=== PATIENT | female | born 1990 | race Caucasian/White ===

== ENCOUNTER 2017-06-19 19:09 | Emergency (ER) | payer BC, OTHER ==
[2017-06-19 20:00] LABS: #Basophils 0.1 thou/uL (0.0-0.2); #Eosinphils 0.1 thou/uL (0.0-0.7); #Monocytes 0.4 thou/uL (0.11-0.59); #Neutrophils 3.9 thou/uL (1.40-6.50); %Basophils 0.8 % (0.0-1.0); %Eosinophils 1.5 % (0.0-10.0); %Lymphocytes 40.8 % (21.0-51.0); Red Blood Cell (RBC) Count 4.28 mill/uL (4.20-5.40); White Blood Cell (WBC) Count 7.4 thou/uL (4.8-10.8)
[2017-06-19 20:13] LABS: ALT (SGPT) 16 U/L (8-55); AST (SGOT) 18 U/L (5-34); Alkaline Phosphatase 67 U/L (40-150); Anion Gap 11 mmol/L (10-20); BUN (Urea Nitrogen) 13 mg/dL (7.0-18.7); Bilirubin, Total 0.5 mg/dL (0.2-1.2); Calc. Creatinine Clearance 0 mL/min (70-130); Calcium 9.3 mg/dL (7.8-10.44); Carbon Dioxide 25 mmol/L (22-29); Chloride 105 mmol/L (98-107); Estimated GFR-MDRD 86; Globulin 3.6 g/dL (2.4-3.5); Protein, Total 7.6 g/dL (6.0-8.3)
[2017-06-19 20:37] LABS: CK (CPK) 46 U/L (29-168); Lipase 11 U/L (8-78)
[2017-06-19] MEDS ORDERED: Ondansetron HCl/PF 4 MG/2 ML Vial ONE (20:55)
[2017-06-19] MEDS ORDERED: Ketorolac Tromethamine 30 MG/ML VIAL ONE (20:55)
[2017-06-19 21:34] LABS: Bilirubin Negative (Negative); Blood, Urine Negative (Negative); Glucose, Urine (Dipstick) Negative (Negative); Ketone, Urine Negative (Negative); Nitrite Negative (Negative); Protein, Urine (Dipstick) Negative (Neg-Trace); Urobilinogen 0.2 mg/dL (0.2-1.0)
--- NOTE | 2017-06-20 00:15 | CT ---
CT ABDOMEN WITH IV CONTRAST CT PELVIS WITH IV CONTRAST 06/19/2017 HISTORY: Sharp right lower quadrant abdominal pain. Burning sensation for 3 days that is worse today and rad iates to the right upper quadrant COMPARISON: 07/04/2015. FINDINGS: Again noted are post-cholecystectomy changes. The lung bases, liver, spleen, pancreas, bilateral adrenal glands, kidneys, abdominal aorta, urinary bladder, uterus, and adnexal structures have a normal CT appearance. Right ovary is not visualized ; the patient provides prior history of right oophorectomy. The appendix is not visualized, but there are no secondary signs to suggest appendicitis. There has been no interval change when compared to the prior exam. IMPRESSION: 1. No acute findings are seen in the abdomen or pelvis. 2. Post-cholecystectomy changes. POS: [facility]
== END 2017-06-19 21:47 | disposition home or self-care (01) ==
LOC: ERS 19:09
DX: R10.31 Right lower quadrant pain (principal); E03.9 Hypothyroidism, unspecified; G50.0 Trigeminal neuralgia
CPT/HCPCS: 36415; 74177; 80053; 81003; 81025; 82550; 83690; 84703; 85025; 96361; 96374; 96375; J1885; J2405

== ENCOUNTER 2017-06-27 09:10 | Emergency (ER) | payer BC ==
[2017-06-27] MEDS ORDERED: Acetaminophen 325 MG TAB ONE (10:02)
[2017-06-27] MEDS ORDERED: Ibuprofen 600 MG TAB ONE (10:02)
== END 2017-06-27 10:05 | disposition home or self-care (01) ==
LOC: SCSER 09:10
DX: J01.90 Acute sinusitis, unspecified (principal); E03.9 Hypothyroidism, unspecified; Z79.899 Other long term (current) drug therapy
CPT/HCPCS: 99283

== ENCOUNTER 2017-12-07 20:59 | Emergency (ER) | payer BC ==
[~2017-12-07 20:59] MED LIST: ISOVUE-370 76%-LOCM 1 ML ONE
[2017-12-07 22:05] LABS: #Eosinphils 0.2 thou/uL (0.0-0.7); #Lymphocytes 3.6 thou/uL (1.20-3.40); #Monocytes 0.6 thou/uL (0.11-0.59); #Neutrophils 5.4 thou/uL (1.40-6.50); %Basophils 0.4 % (0.0-1.0); %Eosinophils 1.9 % (0.0-10.0); %Lymphocytes 37.1 % (21.0-51.0); %Monocytes 5.9 % (0.0-10.0); %Neutrophils 54.7 % (42.0-75.0); Mean Corpuscular HGB CONC 35.6 g/dL (32.0-36.0); Mean Corpuscular Hemoglobin 30.8 pg (27.0-31.0); Mean Corpuscular Volume 86.4 fl (81.0-99.0); Mean Platelet Volume 6.7 fL (7.4-10.4); Platelet Count 225 thou/uL (130-400); RBC Distribution Width 12.6 % (11.5-14.5); Red Blood Cell (RBC) Count 3.91 mill/uL (4.20-5.40); White Blood Cell (WBC) Count 9.8 thou/uL (4.8-10.8)
[2017-12-07 22:25] LABS: ALT (SGPT) 19 U/L (8-55); AST (SGOT) 15 U/L (5-34); Albumin 3.9 g/dL (3.5-5.0); Alkaline Phosphatase 68 U/L (40-150); Anion Gap 12 mmol/L (10-20); BUN (Urea Nitrogen) 16 mg/dL (7.0-18.7); Bilirubin, Total 0.2 mg/dL (0.2-1.2); Calc. Creatinine Clearance 0 mL/min (70-130); Calcium 9.3 mg/dL (7.8-10.44); Carbon Dioxide 24 mmol/L (22-29); Chloride 105 mmol/L (98-107); Estimated GFR-MDRD Greater than 90; Globulin 3.2 g/dL (2.4-3.5); Glucose 94 mg/dL (70-105); Lipase 12 U/L (8-78); Potassium 3.7 mmol/L (3.5-5.1); Protein, Total 7.1 g/dL (6.0-8.3); Sodium 137 mmol/L (136-145)
[2017-12-07 22:32] LABS: Bilirubin Negative (Negative); Blood, Urine Negative (Negative); Clarity CLOUDY (Clear); Glucose, Urine (Dipstick) Negative (Negative); Leukocyte Negative (Negative); Nitrite Negative (Negative); Protein, Urine (Dipstick) Negative (Neg-Trace); Specific Gravity, Urine 1.027 (1.002-1.036); Urobilinogen 0.2 mg/dL (0.2-1.0)
[2017-12-07 22:36] LABS: Pregnancy Test - Urine (BHCG) Negative (Negative); Pregu Control Background? CLEAR/WHITE (CLR/WHITE); Pregu Control Bar Appear? YES (CONTROL BAR); Specific Gravity 1.027 (1.002-1.036)
[2017-12-07] MEDS ORDERED: Ondansetron HCl/PF 4 MG/2 ML Vial ONE (23:10)
[2017-12-07] MEDS ORDERED: Morphine 4 MG/ML VIAL ONE (23:10)
[2017-12-08] MEDS ORDERED: Morphine 4 MG/ML VIAL ONE (00:23)
[2017-12-08] MEDS ORDERED: Fentanyl 100 MCG/2 ML VIAL ONE (01:26)
--- NOTE | 2017-12-08 14:56 | CT ---
PRELIMINARY REPORT/[facility]/EMERGENCY AFTER-HOURS PROCEDURE: EXAM: CT Abdomen and Pelvis With Intravenous Contrast CLINICAL HISTORY: 27 years old, female; Pain; Abdominal pain; Generalized; Patient HX: F27 reports intermittent suprapu bic abd pain for the past 1.5 months. Pt went to fruit grader operator on due to ovarian cyst and fruit grader operator found "b ulge in abd that was pushing fluid back into ovaries. " fruit grader operator was unsure what it is and pt is suppose to have surgery on it on saturday and was discharged with pain meds. Pt came in today because t he pain is worse. Pt reports she has been taking nsaids and norco for pain with no relief. Pt reports associated vaginal spotting and nausea. Lmp was november 21. TECHNIQUE: Axial computed tomography images of the abdomen and pelvis with intravenous contrast. Coronal reformatted images were created and reviewed. COMPARISON: No relevant prior studies available. FINDINGS: Lower thorax: No acute findings. ABDOMEN: Liver: Unremarkable. No mass. Gallbladder and bile ducts: The gallbladder has been surgically removed. No ductal dilation. Pancreas: Unremarkable. No mass. No ductal dilation. Spleen: Unremarkable. No splenomegaly. Adrenals: Unremarkable. No mass. Kidneys and ureters: Unremarkable. No solid mass. No hydronephrosis. Stomach and bowel: Unremarkable. No obstruction. No mucosal thickening. Appendix: No findings to suggest acute appendicitis. PELVIS: Bladder: Unremarkable. No mass. Reproductive: Enlarged left ovary with 3 cm minimally complex cyst posteriorly. ABDOMEN and PELVIS: Intraperitoneal space: Unremarkable. No free air. No significant fluid collection. Bones/joints: No acute fracture. No dislocation. Soft tissues: Unremarkable. Vasculature: Unremarkable. No abdominal aortic aneurysm. Lymph nodes: Unremarkable. No enlarged lymph nodes. IMPRESSION: Minimally complex 3 cm left ovarian/adnexal mass. This was not demonstrated concerning imaging [facility]. Thank you for allowing us to participate in the care of your patient. Dictated and Authenticated by: Shane Fatima MD 12/08/2017 12:50 AM Central Time ([place] & [place]) FINAL REPORT CT ABDOMEN AND PELVIS: HISTORY: Right lower abdominal pain. FINDINGS: Final report. Preliminary exam was performed by [facility]. Contrast-enhanced CT images of the abdomen and pelvis were obtained. IV contrast was given. Unfortu nately, oral contrast was not given. The lung bases are unremarkable. No evidence of free intraperitoneal air is seen. The liver and spleen are unremarkable. The gallbladder has been surgically removed. The pancreas an d adrenal glands are unremarkable. The kidneys are unremarkable. No dilated loops of small bowel seen. Left ovarian cyst or cystic lesion is present. IMPRESSION: No evidence of acute intraabdominal or pelvic pathology. I concur with the dictation from [facility]. POS: [facility]
[2017-12-10 01:02] LABS: Chlamydia by PCR Not Detected (NotDetected); GC by PCR Not Detected (NotDetected)
== END 2017-12-08 02:45 | disposition home or self-care (01) ==
LOC: ERS 20:59
DX: N83.202 Unspecified ovarian cyst, left side (principal); E03.9 Hypothyroidism, unspecified; G50.0 Trigeminal neuralgia; Z85.841 Personal history of malignant neoplasm of brain
CPT/HCPCS: 36415; 74177; 80053; 81003; 81025; 83690; 85025; 87480; 87491; 87510; 87591; 87660; 96361; 96374; 96375; 96376; J2270; J2405; J3010

== ENCOUNTER 2017-12-09 10:42 | Day surgery (SDC) | payer BC, OTHER ==
[2017-12-06 12:07] VITALS: BMI 42.2
--- NOTE | 2017-12-09 04:41 | HP ---
DATE OF OPERATION: 12/09/2017 CHIEF COMPLAINT: Right lower quadrant pain. HISTORY OF PRESENT ILLNESS: This is a 27-year-old, G0, was seen in my office on 12/05/2017 with comp nyasiants of a 6-week history of worsening right lower quadrant pain, as well as sharp stabbing pains th roughout her abdomen, more in the upper abdomen. The patient has been previously seen for GI includi ng upper and lower endoscopy without any findings. The patient has normal GI and function. No ab normal vaginal bleeding. Approximately 1 week ago, she was seen in the ER for severe worsening of th e right lower quadrant pain and the ultrasound there showed a complex left ovarian cyst with free flu id. The patient has a history of a right salpingo-oophorectomy for ovarian torsion in 2008. She den ies any vaginal discharge or chills. Positive for chronic deep dyspareunia. She has taken [place] as well as naproxen with only slight relief. The patient reports she has not been seen by a regular phy sician and has been off of her thyroid replacement for the last 2 years. CURRENT MEDICATIONS: Naproxen 500 mg p.o. p.r.n. pain. PAST MEDICAL HISTORY: Hypothyroidism, cerebellar astrocytoma, trigeminal neuralgia. PAST SURGICAL HISTORY: RSO in 2008, cholecystectomy in 1996, resection of cerebellar astrocytoma in 1995, postoperative methotrexate. OBSTETRIC HISTORY: G0. GYNECOLOGIC HISTORY: No abnormal Paps, no STDs. SOCIAL HISTORY: Negative x3. ALLERGIES: No known drug allergies. FAMILY HISTORY: Colon cancer, father at age 50. REVIEW OF SYSTEMS: Negative except as noted in HPI. PHYSICAL EXAMINATION: VITAL SIGNS: Blood pressure 132/90, pulse is 90, weight is 230 pounds, BMI is 43.5. GENERAL: No acute distress. CARDIAC: Regular rate and rhythm. LUNGS: Clear to auscultation bilaterally. ABDOMEN: Soft and tender in the right lower quadrant with light palpation. No masses are appreciate d or hernias. EXTREMITIES: No edema, cyanosis or clubbing. PELVIC: Deferred to the OR. ASSESSMENT AND PLAN: This is a 27-year-old G0 with acute right lower quadrant pain, history of RSO a s well as a left complex ovarian cyst with free fluid present. No evidence of torsion flow is presen t on the ultrasound; however, secondary to patient's worsening severe pain, I have dispositioned the patient for diagnostic laparoscopy, possible ovarian cystectomy. Pap and cultures were all ordered a nd are pending and no evidence of acute PID as the patient had no white count on her ER visit and fee l this could be likely a hemorrhagic cyst. I have rechecked her TSH and we will restart her thyroid replacement with referral to a primary doctor. She will follow up with me in 2 weeks postoperative t seven. All risks were discussed of surgery to include bleeding, transfusion, infection, damage to surr ounding structures. The patient understands and wished to proceed.
[2017-12-09 12:23] LABS: #Eosinphils 0.1 thou/uL (0.0-0.7); #Lymphocytes 2.2 thou/uL (1.20-3.40); #Monocytes 0.4 thou/uL (0.11-0.59); #Neutrophils 4.9 thou/uL (1.40-6.50); %Basophils 0.3 % (0.0-1.0); %Eosinophils 1.5 % (0.0-10.0); %Lymphocytes 29.3 % (21.0-51.0); %Monocytes 5.3 % (0.0-10.0); %Neutrophils 63.6 % (42.0-75.0); Hemoglobin 12.5 g/dL (12.0-16.0); Mean Corpuscular HGB CONC 33.7 g/dL (32.0-36.0); Mean Corpuscular Hemoglobin 29.4 pg (27.0-31.0); Mean Corpuscular Volume 87.2 fl (81.0-99.0); Mean Platelet Volume 6.7 fL (7.4-10.4); Platelet Count 245 thou/uL (130-400); RBC Distribution Width 12.6 % (11.5-14.5); Red Blood Cell (RBC) Count 4.24 mill/uL (4.20-5.40); White Blood Cell (WBC) Count 7.6 thou/uL (4.8-10.8)
[2017-12-09 12:40] LABS: BHCG - Serum Negative (NEGATIVE); Pregs Control Background? CLEAR/WHITE (CLR/WHITE); Pregs Control Bar Appear? YES (CONTROL BAR)
[2017-12-09] MEDS ORDERED: Famotidine/PF 20 mg/2ml Vial ONE (13:14)
[2017-12-09] MEDS ORDERED: Ondansetron HCl/PF 4 MG/2 ML Vial ONE ×2 (13:14→15:05)
[2017-12-09] MEDS ORDERED: CEFAZOLIN/Water 2 GM/20 ML SYRINGE ONE (13:31)
[2017-12-09] MEDS ORDERED: Bupivacaine HCl 0.5%/Epinephrine 1:200,000/PF 30 ml Vial ONE (14:36)
[2017-12-09] MEDS ORDERED: Midazolam HCl 2 mg/2 ml Vial ONE ×2 (14:42→14:50)
[2017-12-09] MEDS ORDERED: Fentanyl 250 MCG/5 ML VIAL ONE ×2 (14:45→16:33)
[2017-12-09] MEDS ORDERED: Ketorolac Tromethamine 30 MG/ML VIAL ONE (15:05)
[2017-12-09] MEDS ORDERED: Lidocaine 1% PF 5 ML VIAL ONE (15:05)
[2017-12-09] MEDS ORDERED: Dexamethasone 20 MG/5 ML VIAL ONE (15:05)
[2017-12-09] MEDS ORDERED: PROPOFOL 200 MG/20 ML VIAL ONE (15:05)
[2017-12-09] MEDS ORDERED: Glycopyrrolate 0.2 MG/ML 5 ML SYRINGE ONE (15:05)
[2017-12-09] MEDS ORDERED: Morphine 4 MG/ML VIAL ONE ×2 (16:59→18:37)
--- NOTE | 2017-12-09 17:39 | OP ---
DATE OF OPERATION: 12/09/2017 PREOPERATIVE DIAGNOSIS: Pelvic pain. POSTOPERATIVE DIAGNOSES: 1. Pelvic pain. 2. Left ovarian cyst. PROCEDURES PERFORMED: Diagnostic laparoscopy, left ovarian cystectomy and chromotubation. ATTENDING SURGEON: Brianne Hoover MD EDITING INTERNSHIP SURGEON: None. ESTIMATED BLOOD LOSS: 10 mL. INTRAVENOUS FLUIDS: 1400 mL crystalloid. URINE OUTPUT: 100 mL of clear urine at the beginning. COMPLICATIONS: None. DRAINS: None. PATHOLOGY: Left ovarian cyst. FINDINGS: Mobile 8 week size uterus, a small subserosal fibroid on the anterior uterus approximately 2 cm. The right fallopian tube and ovary was surgically absent. The left ovary had a 4 cm cyst off of the tip that appeared to be a hemorrhagic corpus luteum with a capsular distention and swelling. There was a small amount of free blood in the pelvis; however, due to the distention and swelling on this ovarian cyst, this was felt to likely be the cause of her severe pelvic pain and this was remov ed in its entirety. The appendix was examined and noted to be normal as well as the upper abdomen. OPERATIVE TECHNIQUE: The patient was taken to the operating room where general anesthesia was obtain ed without difficulty. The patient was prepped and draped in a sterile fashion in the dorsal lithoto my position. A speculum was placed in the vagina. The anterior lip of the cervix was grasped with s alcon tooth tenaculum. The uterus then sounded to 8 cm and the cervix was progressively dilated with Yanick dilators. The diagnostic VCare was inserted into the sounded to depth and the tip balloon was inflated. All instruments were removed out of the vagina and legs were placed in low lithotomy. Att ention was turned to the abdomen. A 0.5% Marcaine with epinephrine was infiltrated into the umbilicu s and a 5 mm skin incision was made. The Veress needle was passed into the abdomen noting an opening pressure of 3 mmHg. Pneumoperitoneum was obtained without difficulty. The Veress needle was remove d. The 5 mm trocar and camera were advanced into the abdomen optically and pneumoperitoneum was mckenna tablished. Steep Trendelenburg was obtained. A right lower quadrant port was placed under direct vi sualization that was 5 mm after infiltrating with 0.5% Marcaine with epinephrine. Manipulation of th e pelvic structures revealed the above findings and photo documentation was performed. A left lower quadrant 5 mm port was placed as well under direct visualization after infiltrating with 0.5% Marcain e with epinephrine. The left ovary was elevated and stabilized. The LigaSure was used to come acros s the ovarian cyst as this was on the very edge of the cyst protruding off and the cyst was clamped a cross cauterized and transected sequentially until the cyst was completely removed and totality intac t. This was placed in the cul-de-sac. The ovary was noted to have some oozing; and therefore, the M aryland bipolar was used to cauterize the ovarian bed with hemostasis noted. Irrigation was performe d with again noting hemostasis. Chromotubation was performed through the diagnostic VCare with dilut e methylene blue noting immediate free spillage out of the left fallopian tube and the 5 mm port was then exchanged out for an 8 mm port and a 5 mm bag was introduced into the abdomen and the ovarian cy st was placed in the bag and removed without difficulty. All instruments were removed out of the abd omen. Pneumoperitoneum was released. Skin was closed with 4-0 Monocryl in a subcuticular fashion. Dermabond was applied. All instruments were removed out of the vagina and hemostasis was noted. The patient tolerated procedure well. Sponge, lap, needle counts were correct x2. The patient was take n to recovery in stable condition.
[2017-12-09] MEDS ORDERED: HYDROmorphone 0.5 MG/0.5 ML SYRINGE ONE (17:41)
[2017-12-09] MEDS ORDERED: Promethazine HCl 25 MG/ML VIAL ONE (18:56)
== END 2017-12-09 20:03 | disposition home or self-care (01) ==
LOC: SDC 10:42
PROVIDERS: ATTEND Student in an Organized Health Care Education/Training Program
PROC: 0UB14ZZ Excision of Left Ovary, Percutaneous Endoscopic Approach (ICD-10-PCS; principal; 2017-12-09)
DX: N83.12 Corpus luteum cyst of left ovary (principal); E03.9 Hypothyroidism, unspecified; G50.0 Trigeminal neuralgia; Z79.1 Long term (current) use of non-steroidal anti-inflammatories (NSAID); Z79.899 Other long term (current) drug therapy; Z91.048 Other nonmedicinal substance allergy status; Z90.721 Acquired absence of ovaries, unilateral; Z90.79 Acquired absence of other genital organ(s)
CPT/HCPCS: 36415; 84703; 85025; 86850; 86900; 86901; 88307; 96374; 96375; J0131; J0670; J1100; J1170; J1885; J2001; J2250; J2270; J2405; J2550; J2704; J3010; Q9968; S0028

== ENCOUNTER 2018-01-02 16:11 | Emergency (ER) | payer BC ==
[~2018-01-02 16:11] MED LIST changes: +Iopamidol 370 76% 50 ML VIAL FS ONE
[2018-01-02] MEDS ORDERED: Morphine 4 MG/ML VIAL ONE (17:14)
[2018-01-02] MEDS ORDERED: Ondansetron HCl/PF 4 MG/2 ML Vial ONE ×2 (17:15→18:38)
[2018-01-02 17:19] LABS: #Eosinphils 0.1 thou/uL (0.0-0.7); #Lymphocytes 2.9 thou/uL (1.20-3.40); #Monocytes 0.4 thou/uL (0.11-0.59); %Basophils 0.3 % (0.0-1.0); %Eosinophils 1.6 % (0.0-10.0); %Monocytes 4.9 % (0.0-10.0); %Neutrophils 59.1 % (42.0-75.0); Hemoglobin 13.3 g/dL (12.0-16.0); Mean Corpuscular HGB CONC 33.8 g/dL (32.0-36.0); Mean Corpuscular Volume 88.8 fl (81.0-99.0); Mean Platelet Volume 7.3 fL (7.4-10.4); Platelet Count 263 thou/uL (130-400); RBC Distribution Width 12.3 % (11.5-14.5); Red Blood Cell (RBC) Count 4.43 mill/uL (4.20-5.40); White Blood Cell (WBC) Count 8.5 thou/uL (4.8-10.8)
[2018-01-02 17:24] LABS: BHCG - Serum Negative (NEGATIVE); Pregs Control Background? CLEAR/WHITE (CLR/WHITE); Pregs Control Bar Appear? YES (CONTROL BAR)
[2018-01-02 17:40] LABS: ALT (SGPT) 31 U/L (8-55); AST (SGOT) 21 U/L (5-34); Albumin 4.4 g/dL (3.5-5.0); Alkaline Phosphatase 74 U/L (40-150); Anion Gap 15 mmol/L (10-20); BUN (Urea Nitrogen) 11 mg/dL (7.0-18.7); Bilirubin, Total 0.7 mg/dL (0.2-1.2); Calc. Creatinine Clearance 0 mL/min (70-130); Calcium 9.8 mg/dL (7.8-10.44); Carbon Dioxide 19 mmol/L (22-29); Chloride 107 mmol/L (98-107); Estimated GFR-MDRD Greater than 90; Globulin 3.7 g/dL (2.4-3.5); Glucose 81 mg/dL (70-105); Protein, Total 8.1 g/dL (6.0-8.3); Sodium 137 mmol/L (136-145)
[2018-01-02 19:04] LABS: Bilirubin Negative (Negative); Blood, Urine Negative (Negative); Clarity CLOUDY (Clear); Glucose, Urine (Dipstick) Negative (Negative); Leukocyte Negative (Negative); Nitrite Negative (Negative); Protein, Urine (Dipstick) Negative (Neg-Trace); Specific Gravity, Urine 1.014 (1.002-1.036); Urobilinogen 0.2 mg/dL (0.2-1.0); pH, Urine 5.5 (5.0-9.0)
--- NOTE | 2018-01-02 20:52 | CT ---
ABDOMEN AND PELVIS CT WITH CONTRAST 01/02/18 COMPARISON: 12/08/17. INDICATION: Abdominal pain. Recent laparoscopic surgery. Fever. FINDINGS: There is no consolidation or effusion of the imaged lung bases. Prior cholecystectomy. Prominence of the spleen, stable. No focal hepatic lesion. Adrenal glands are unremarkable. No peripancreatic infla mmation. No evidence of hydronephrosis involving either kidney. No bowel obstruction. There is a comp robert mass-like prominence of the left adnexa with mild surrounding fat stranding. No obvious inflammat ion of the adjacent, traversing sigmoid colon. No pneumoperitoneum. No significant ascites. IMPRESSION: Redemonstration of complex appearance of left adnexa. There is slight inflammation. This could relate to physiologic change with hemorrhagic cyst formation, although inflammatory etiology is not exclude d. Correlate clinically. Unless more urgent imaging evaluation is clinically necessary, followup pelv ic ultrasound is recommended to confirm expected physiologic resolution. No bowel obstruction. Prior cholecystectomy. No evidence of subcutaneous abscess to account for patient's site of pain related to recent laparosco pic surgery. POS: [facility]
== END 2018-01-02 20:13 | disposition home or self-care (01) ==
LOC: ERS 16:11
DX: L03.311 Cellulitis of abdominal wall (principal); E03.9 Hypothyroidism, unspecified; Z79.899 Other long term (current) drug therapy
CPT/HCPCS: 36415; 74177; 80053; 81003; 83605; 84703; 85025; 96361; 96374; 96375; 96376; J2270; J2405

== ENCOUNTER 2018-01-28 20:04 | Observation (INO) | payer BC ==
[~2018-01-28 20:04] MED LIST changes: -Iopamidol 370 76% 50 ML VIAL FS ONE
[2018-01-28 20:32] LABS: #Basophils 0.1 thou/uL (0.0-0.2); #Eosinphils 0.1 thou/uL (0.0-0.7); #Lymphocytes 2.8 thou/uL (1.20-3.40); #Monocytes 0.4 thou/uL (0.11-0.59); #Neutrophils 5.2 thou/uL (1.40-6.50); %Basophils 0.6 % (0.0-1.0); %Eosinophils 1.3 % (0.0-10.0); %Lymphocytes 32.8 % (21.0-51.0); %Monocytes 4.7 % (0.0-10.0); %Neutrophils 60.6 % (42.0-75.0); Hemoglobin 12.1 g/dL (12.0-16.0); Mean Corpuscular HGB CONC 34.7 g/dL (32.0-36.0); Mean Corpuscular Hemoglobin 30.2 pg (27.0-31.0); Mean Corpuscular Volume 87.1 fl (81.0-99.0); Mean Platelet Volume 6.7 fL (7.4-10.4); Platelet Count 271 thou/uL (130-400); RBC Distribution Width 12.2 % (11.5-14.5); Red Blood Cell (RBC) Count 4.01 mill/uL (4.20-5.40); White Blood Cell (WBC) Count 8.6 thou/uL (4.8-10.8)
[2018-01-28 20:52] LABS: ALT (SGPT) 21 U/L (8-55); AST (SGOT) 17 U/L (5-34); Albumin 4.1 g/dL (3.5-5.0); Alkaline Phosphatase 71 U/L (40-150); Anion Gap 14 mmol/L (10-20); BUN (Urea Nitrogen) 12 mg/dL (7.0-18.7); Bilirubin, Total 0.3 mg/dL (0.2-1.2); Calc. Creatinine Clearance 0 mL/min (70-130); Calcium 9.2 mg/dL (7.8-10.44); Carbon Dioxide 22 mmol/L (22-29); Chloride 105 mmol/L (98-107); Estimated GFR-MDRD Greater than 90; Globulin 3.3 g/dL (2.4-3.5); Glucose 88 mg/dL (70-105); Lipase 9 U/L (8-78); Protein, Total 7.4 g/dL (6.0-8.3); Sodium 137 mmol/L (136-145)
[2018-01-28 21:22] LABS: Bilirubin Negative (Negative); Blood, Urine Negative (Negative); Clarity CLEAR (Clear); Glucose, Urine (Dipstick) Negative (Negative); Leukocyte Negative (Negative); Nitrite Negative (Negative); Protein, Urine (Dipstick) Negative (Neg-Trace); Specific Gravity, Urine 1.037 (1.002-1.036); Urobilinogen 0.2 mg/dL (0.2-1.0)
[2018-01-28 21:23] LABS: Pregnancy Test - Urine (BHCG) Negative (Negative); Pregu Control Background? CLEAR/WHITE (CLR/WHITE); Pregu Control Bar Appear? YES (CONTROL BAR); Specific Gravity 1.037 (1.002-1.036)
[2018-01-28] MEDS ORDERED: Fentanyl 100 MCG/2 ML VIAL ONE (21:51)
[2018-01-28] MEDS ORDERED: Ondansetron ODT 4 MG TAB ONE (21:51)
[2018-01-28] MEDS ORDERED: Ketorolac Tromethamine 30 MG/ML VIAL ONE (23:04)
--- NOTE | 2018-01-28 23:17 | CT ---
CT OF THE ABDOMEN AND PELVIS PERFORMED WITH INTRAVENOUS CONTRAST ENHANCEMENT: 01/28/18 COMPARISON: 01/02/18 study. HISTORY: The patient has a history of ovarian cyst, right sided pelvic pain since last night. History of right ovary removed due to torsion. Patient reports vaginal spotting. The lung bases are clear. Liver shows suggestion of some possible fatty change. It measures 21 cm in length. The spleen measure s 11.6 cm. The pancreas region is unremarkable. Gallbladder has been removed. Right and left adrenal glands and right and left kidneys are normal in appearance. There is no signif icant periaortic or mesenteric adenopathy. CT OF PELVIS PERFORMED WITH CONTRAST ENHANCEMENT: Complex cystic area involving the left adnexa is still present. Ultrasound may be helpful in further characterization of this. The right ovary is not identified. There is a surgical clip seen in the rig ht side of the pelvis. The appendix is difficult to definitely visualize but I see no evidence for ap pendicitis. No free fluid. No adenopathy or mass. IMPRESSION: 1. Borderline liver and spleen size with suggestion of some fatty changes of the liver. 2. Postop cholecystectomy. 3. Stable appearance to left ovarian mass density which appears to represent a complex cyst. Fur ther characterization with CT on a nonemergent basis would be suggested. This measures approximately 4.5 cm[address] POS: [facility]
[2018-01-28] MEDS ORDERED: HYDROcodone/Acetaminophen 10/325 mg Tablet ONE (23:50)
--- NOTE | 2018-01-29 00:01 | ULT ---
PELVIC ULTRASOUND: 01/28/18 HISTORY: Right sided pelvic pain. history of right oophorectomy. Real time images of the pelvis were obtained transabdominally as well as with an endovaginal probe. This shows a uterus measuring 8.8 cm. Endometrium is slightly thickened at 7 mm. Left ovary is normal in size. Trace free fluid is seen next to the left ovary. Small follicles are present. DOPPLER EVALUATION WITH SPECTRAL ANALYSIS. Normal flow is shown to the left adnexa. IMPRESSION: 1. Small amount of free fluid seen within the pelvis. 2. Normal appearing uterus and left ovary. 3. Status post right oophorectomy. POS: [facility]
[2018-01-29] MEDS ORDERED: HYDROmorphone 0.5 MG/0.5 ML SYRINGE ONE (00:04)
[2018-01-29] MEDS ORDERED: Ondansetron HCl/PF 4 MG/2 ML Vial IVP PRN (01:12)
[2018-01-29] MEDS ORDERED: Acetaminophen 325 MG TAB PO PRN (01:12)
[2018-01-29] MEDS ORDERED: HYDROcodone/Acetaminophen 10/325 mg Tablet PO PRN ×2 (01:44)
[2018-01-29 01:47] VITALS: BMI 39.3
[2018-01-29] MEDS ORDERED: Morphine 5 MG/ML SYRINGE SLOW IVP SCH (02:00)
[2018-01-29] MEDS: Ondansetron ODT 4 MG TAB SL PRN ×2 (02:28→08:45)
[2018-01-29] MEDS: Lactated Ringer's 1,000 ML IV SCH ×2 (02:28→08:50)
[2018-01-29] MEDS: Morphine 5 MG/ML SYRINGE SLOW IVP PRN ×2 (02:33→08:45)
--- NOTE | 2018-01-29 03:52 | HP ---
DATE OF ENCOUNTER: 01/29/2018 PRIMARY GRAIN TRIMMER: Brianne Hoover MD CHIEF COMPLAINT: Abdominal pain. HISTORY OF PRESENT ILLNESS: The patient is a 27-year-old G0 who has presented to the emergency room with approximately 24 hours of abdominal pain that was not improving. She reports that the pain is sharp and stabbing and is on the right side. The patient's pain is consistent with pain she was experiencing approximately 2 months ago, resulting in a left ovarian cystectomy with what appears to be hemorrhagic corpus luteum. The patient had hydrocodone at home and was not able to find improvement with pain. Down in the emergency room, the patient has been given 100 mcg of fentanyl and 10 mg of hydrocodone and Dilaudid with difficulty getting her pain under control. Patient reports her first day of last menstrual period was approximately 15 days ago. She has a history of right-sided ovarian torsion in 2008, resulting in a salpingo- oophorectomy of the right side. PAST MEDICAL HISTORY: Hypothyroidism, cerebellar astrocytoma, and trigeminal neuralgia. PAST SURGICAL HISTORY: RSO in 2008, cholecystectomy in 1996, resection of cerebellar astrocytoma in 1995, postoperative methotrexate, and then most recently had a left ovarian cystectomy in 11/2017. OBSTETRIC HISTORY: G0. SOCIAL HISTORY: Denies drug, alcohol, or tobacco use. ALLERGIES: No known drug allergies. REVIEW OF SYSTEMS: The patient denies any fever, headache, chest pain, shortness of breath, or nausea. Denies constipation or diarrhea. Vaginal spotting. First day of her last menstrual period was 01/08/2018. MEDICATIONS: Levothyroxine 112 mcg daily. Medications down in the emergency room, she had 0.5 mg of Dilaudid, 10 mg of [place] 30 mg of Toradol, 100 mcg of fentanyl, 4 mg of Zofran. PHYSICAL EXAMINATION: VITAL SIGNS: Blood pressure 142/67, respiratory rate of 18, satting 98% on room air, pulse is 77, temperature 98.5. GENERAL: Patient appears to be alert and oriented, cooperative and pleasant to interact with. She does appear to be uncomfortable, though is having some pain relief with the medications that she has had on board. HEENT: Normocephalic, atraumatic. LUNGS: Clear to auscultation bilaterally. HEART: Regular rate and rhythm. ABDOMEN: Soft with tenderness on the right side. EXTREMITIES: Nontender, nonedematous. DIAGNOSTIC DATA: Ultrasound demonstrates blood flow with no evidence of torsion with a normal sized ovary and small follicles present. ASSESSMENT AND PLAN: The patient is a 27-year-old female with right-sided pelvic pain similar to her pain resulting in a left cystectomy, uncontrollable with oral pain medications. Patient has been admitted to observation for pain control. She has been given hydrocodone, Dilaudid, fentanyl, and Toradol downstairs in the emergency room. I have ordered another 10 mg of hydrocodone and Zofran with morphine 4 mg IV q.2 hours for breakthrough pain. She does not appear to have any ovarian cyst at this time that could be causing this issue, although timing with her period, she could be having ovulatory pain that is hemorrhagic. I will be notifying Dr. Hoover in the morning who can resume management. The patient is n.p.o. at this time. [facility]
[2018-01-29 07:59] VITALS: BP 113/64; TEMP 97.8
[2018-01-29] MEDS ORDERED: Ketorolac Tromethamine 30 MG/ML VIAL IVP PRN (09:46)
[2018-01-29] MEDS ORDERED: Acetaminophen 1,000 MG in Premix Bag 1 BAG IVPB PRN (09:47)
[2018-01-29] MEDS ORDERED: traMADol HCl 50 MG TAB PO PRN ×2 (09:51)
[2018-01-29] MEDS ORDERED: Lactated Ringer's 1,000 ML IV SCH (10:00)
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
== END 2018-01-29 11:05 | disposition home or self-care (01) ==
LOC: ERS 20:04 → 3SE 01-29 00:01
PROVIDERS: ADMIT Obstetrics & Gynecology; ATTEND Obstetrics & Gynecology
DX: R10.31 Right lower quadrant pain (principal); E03.9 Hypothyroidism, unspecified; G50.0 Trigeminal neuralgia; Z85.841 Personal history of malignant neoplasm of brain; Z79.899 Other long term (current) drug therapy; Z91.048 Other nonmedicinal substance allergy status
CPT/HCPCS: 36415; 74177; 76856; 80053; 81003; 81025; 83690; 85025; 96361; 96374; 96375; 96376; J2270; G0378; J0131; J1170; J1885; J3010; Q0162

== ENCOUNTER 2018-04-08 08:42 | Outpatient (CLI) | payer BC ==
--- NOTE | 2018-04-08 10:32 | MRI ---
MRI LUMBAR SPINE WITHOUT CONTRAST: HISTORY: Low back pain. TECHNIQUE: Multiplanar, multisequential imaging of the lumbar spine obtained. FINDINGS: The lumbar vertebrae maintain normal height and alignment. Disk spaces are normally maintained and e xhibit normal T2 signal. No evidence of significant disk bulge or disk protrusion seen at any of the visualized levels. There is mild facet arthrosis noted at L4-L5 and at L5-S1 with a tiny amount of fluid in the facet joint at these levels. There is no central canal or foraminal stenosis identified . IMPRESSION: 1. Mild facet arthrosis at L4-L5 and at L5-S1. 2. No evidence of disk bulge or protrusion. 3. No central canal or foraminal stenosis. POS: [facility]
== END 2018-04-08 08:43 | disposition home or self-care (01) ==
LOC: MRI 08:42
PROVIDERS: ATTEND Orthopaedic Surgery
DX: M54.5 Low back pain (principal); M47.896 Other spondylosis, lumbar region; M47.897 Other spondylosis, lumbosacral region
CPT/HCPCS: 72148

== ENCOUNTER 2018-07-14 09:16 | Emergency (ER) | payer BC | END 2018-07-14 09:48 | disposition home or self-care (01) | LOC: ERS 09:16 | DX: R21 Rash and other nonspecific skin eruption (principal); E03.9 Hypothyroidism, unspecified; Z79.899 Other long term (current) drug therapy | CPT/HCPCS: 99282 ==

== ENCOUNTER 2018-07-19 11:25 | Emergency (ER) | payer BC ==
[2018-07-19] MEDS ORDERED: diphenhydrAMINE 12.5 MG/5 ML UDCUP ONE (12:09)
[2018-07-19] MEDS ORDERED: Metoclopramide HCl 10 MG/2 ML VIAL ONE (12:09)
[2018-07-19] MEDS ORDERED: diphenhydrAMINE 50 MG/ML VIAL IVP SCH (12:15)
[2018-07-19 12:23] LABS: #Basophils 0.1 thou/uL (0.0-0.2); #Monocytes 0.4 thou/uL (0.11-0.59); #Neutrophils 3.7 thou/uL (1.40-6.50); %Basophils 1.1 % (0.0-1.0); %Eosinophils 0.8 % (0.0-10.0); %Lymphocytes 32.5 % (21.0-51.0); %Monocytes 6.2 % (0.0-10.0); %Neutrophils 59.3 % (42.0-75.0); Hemoglobin 12.4 g/dL (12.0-16.0); Mean Corpuscular HGB CONC 33.4 g/dL (32.0-36.0); Mean Corpuscular Hemoglobin 29.5 pg (27.0-31.0); Mean Corpuscular Volume 88.3 fL (78.0-98.0); Mean Platelet Volume 7.2 fL (7.4-10.4); Platelet Count 246 thou/uL (130-400); RBC Distribution Width 13.6 % (11.5-14.5); Red Blood Cell (RBC) Count 4.22 mill/uL (4.20-5.40); White Blood Cell (WBC) Count 6.2 thou/uL (4.8-10.8)
[2018-07-19 12:34] LABS: BHCG - Serum Negative (NEGATIVE); Pregs Control Background? CLEAR/WHITE (CLR/WHITE); Pregs Control Bar Appear? YES (CONTROL BAR)
[2018-07-19 12:44] LABS: ALT (SGPT) 35 U/L (8-55); AST (SGOT) 28 U/L (5-34); Albumin 3.8 g/dL (3.5-5.0); Alkaline Phosphatase 58 U/L (40-150); Anion Gap 12 mmol/L (10-20); BUN (Urea Nitrogen) 6 mg/dL (7.0-18.7); Bilirubin, Total 0.5 mg/dL (0.2-1.2); Calc. Creatinine Clearance 0 mL/min (70-130); Calcium 9.3 mg/dL (7.8-10.44); Carbon Dioxide 22 mmol/L (22-29); Chloride 107 mmol/L (98-107); Estimated GFR-MDRD Greater than 90; Globulin 3.2 g/dL (2.4-3.5); Glucose 86 mg/dL (70-105); Potassium 4.1 mmol/L (3.5-5.1); Sodium 137 mmol/L (136-145)
[2018-07-19] MEDS ORDERED: CEFAZOLIN 1 GM VIAL ONE (12:58)
[2018-07-19] MEDS ORDERED: methylPREDNISolone Sod Succ/PF 125 MG/2 ML VIAL ONE (12:58)
[2018-07-19] MEDS ORDERED: Water For Inject, Bacteriostat 30 ML ONE (13:01)
[2018-07-19] MEDS ORDERED: CEFAZOLIN 2 GM/50 ML-DEXTROSE 2 GM in Premix Bag 1 BAG IVPB ONE (13:15)
[2018-07-19] MEDS ORDERED: Cephalexin 250 MG CAP ONE (14:20)
== END 2018-07-19 14:35 | disposition home or self-care (01) ==
LOC: ERS 11:25
DX: A46 Erysipelas (principal); M79.10 Myalgia, unspecified site; E03.9 Hypothyroidism, unspecified; R10.9 Unspecified abdominal pain; Z79.899 Other long term (current) drug therapy
CPT/HCPCS: 36415; 80053; 84703; 85025; 87804; 96365; 96375; J0690; J1200; J2765; J2930

== ENCOUNTER 2018-07-26 19:35 | Emergency (ER) | payer BC ==
[2018-07-26] MEDS ORDERED: Dexamethasone 10 MG/ML VIAL ONE (20:31)
[2018-07-26 20:35] LABS: #Basophils 0.1 thou/uL (0.0-0.2); #Eosinphils 0.1 thou/uL (0.0-0.7); #Lymphocytes 2.2 thou/uL (1.20-3.40); #Monocytes 0.4 thou/uL (0.11-0.59); %Basophils 0.9 % (0.0-1.0); %Eosinophils 0.9 % (0.0-10.0); %Lymphocytes 33.1 % (21.0-51.0); %Monocytes 5.5 % (0.0-10.0); %Neutrophils 59.6 % (42.0-75.0); Hemoglobin 12.7 g/dL (12.0-16.0); Mean Corpuscular HGB CONC 34.2 g/dL (32.0-36.0); Mean Corpuscular Hemoglobin 30.3 pg (27.0-31.0); Mean Corpuscular Volume 88.6 fL (78.0-98.0); Mean Platelet Volume 7.2 fL (7.4-10.4); Platelet Count 257 thou/uL (130-400); RBC Distribution Width 13.3 % (11.5-14.5); White Blood Cell (WBC) Count 6.7 thou/uL (4.8-10.8)
[2018-07-26] MEDS ORDERED: Ketorolac Tromethamine 60 MG/2 ML VIAL ONE (21:43)
== END 2018-07-26 21:48 | disposition home or self-care (01) ==
LOC: ERS 19:35
DX: G50.0 Trigeminal neuralgia (principal); E03.9 Hypothyroidism, unspecified; Z79.899 Other long term (current) drug therapy
CPT/HCPCS: 36415; 85025; 85652; 86140; 96372; J1100; J1885

== ENCOUNTER 2018-07-27 02:39 | Emergency (ER) | payer BC ==
[2018-07-27] MEDS ORDERED: Acetaminophen/Codeine 30-300mg Tablet ONE (03:12)
[2018-07-27] MEDS ORDERED: Morphine 4 MG/ML VIAL ONE ×2 (03:46→04:52)
[2018-07-27] MEDS ORDERED: Lorazepam 1 MG TAB ONE (04:10)
[2018-07-27] MEDS ORDERED: Fentanyl 100 MCG/2 ML VIAL ONE (05:05)
[2018-07-27] MEDS ORDERED: Dexamethasone 10 MG/ML VIAL ONE (05:25)
[2018-07-27] MEDS ORDERED: Ondansetron PF 4 MG/2 ML Vial ONE (05:25)
== END 2018-07-27 06:40 | disposition home or self-care (01) ==
LOC: ERS 02:39
DX: G50.0 Trigeminal neuralgia (principal); E03.9 Hypothyroidism, unspecified
CPT/HCPCS: 96365; 96372; 96375; J0131; J1100; J2270; J2405; J3010

== ENCOUNTER 2019-04-01 19:21 | Emergency (ER) | payer BC, OTHER, SELFPAY ==
[2019-04-01] MEDS ORDERED: Ketorolac Tromethamine 30 MG/ML VIAL ONE (20:30)
[2019-04-01] MEDS ORDERED: Dexamethasone 4 mg/ml Vial ONE ×2 (21:06)
== END 2019-04-01 21:34 | disposition home or self-care (01) ==
LOC: ERS 19:21
DX: J02.9 Acute pharyngitis, unspecified (principal); H65.92 Unspecified nonsuppurative otitis media, left ear; E03.9 Hypothyroidism, unspecified; Z79.899 Other long term (current) drug therapy
CPT/HCPCS: 87081; 87430; 96372; 99283; J1100; J1885

== ENCOUNTER 2019-06-08 12:07 | Emergency (ER) | payer SELFPAY ==
[2019-06-08 12:36] LABS: Bilirubin Negative (Negative); Blood, Urine Negative (Negative); Clarity Cloudy (Clear); Glucose, Urine (Dipstick) Negative (Negative); Leukocyte Negative (Negative); Nitrite Negative (Negative); Pregnancy Test - Urine (BHCG) Negative (Negative); Pregu Control Background? CLEAR/WHITE (CLR/WHITE); Pregu Control Bar Appear? YES (CONTROL BAR); Protein, Urine (Dipstick) Negative (Neg-Trace); Specific Gravity 1.025 (1.002-1.036); Urobilinogen 0.2 mg/dL (Less than 2)
--- NOTE | 2019-06-08 13:36 | ULT ---
Pelvic sonogram transvaginal imaging with duplex evaluation HISTORY: Left pelvic pain. FINDINGS: Urinary bladder is decompressed. Uterus has a heterogeneous echotexture and measures up to 8.0 cm. Endometrium is 0.8 cm. No free fluid. Left ovary measures up to 3.5 cm. Small follicles. Good color and spectral Doppler flow. Right ovary is surgically absent. No adnexal masses. IMPRESSION: Status post right oophorectomy. No abnormalities are demonstrated.
[2019-06-09 20:57] LABS: Chlamydia by PCR Not Detected (NotDetected); GC by PCR Not Detected (NotDetected)
== END 2019-06-08 14:11 | disposition home or self-care (01) ==
LOC: SCSER 12:07
DX: N83.202 Unspecified ovarian cyst, left side (principal); E03.9 Hypothyroidism, unspecified
CPT/HCPCS: 76856; 81003; 81025; 87491; 87591

== ENCOUNTER 2019-06-12 11:11 | Emergency (ER) | payer SELFPAY ==
[~2019-06-12 11:11] MED LIST changes: -ISOVUE-370 76%-LOCM 1 ML ONE; +Iopamidol 370 76% 100 ML VIAL ONE
[2019-06-12 12:34] LABS: #Eosinphils 0.1 thou/uL (0.0-0.7); #Lymphocytes 1.8 thou/uL (1.20-3.40); #Monocytes 0.3 thou/uL (0.11-0.59); #Neutrophils 4.1 thou/uL (1.40-6.50); %Basophils 0.5 % (0.0-1.0); %Eosinophils 1.1 % (0.0-10.0); %Lymphocytes 28.4 % (21.0-51.0); %Monocytes 4.7 % (0.0-10.0); %Neutrophils 65.3 % (42.0-75.0); Hemoglobin 12.4 g/dL (12.0-16.0); Mean Corpuscular HGB CONC 33.9 g/dL (32.0-36.0); Mean Corpuscular Hemoglobin 28.9 pg (27.0-31.0); Mean Corpuscular Volume 85.3 fL (78.0-98.0); Mean Platelet Volume 7.1 fL (7.4-10.4); Platelet Count 220 thou/uL (130-400); RBC Distribution Width 12.9 % (11.5-14.5); Red Blood Cell (RBC) Count 4.29 mill/uL (4.20-5.40); White Blood Cell (WBC) Count 6.3 thou/uL (4.8-10.8)
[2019-06-12 12:36] LABS: BHCG - Serum Negative (NEGATIVE); Pregs Control Background? CLEAR/WHITE (CLR/WHITE); Pregs Control Bar Appear? YES (CONTROL BAR)
[2019-06-12 12:37] LABS: PTT 33.9 SEC (22.9-36.1); Prothrombin Time 12.8 SEC (12.0-14.7)
[2019-06-12 12:44] LABS: ALT (SGPT) 19 U/L (8-55); AST (SGOT) 19 U/L (5-34); Albumin 4.3 g/dL (3.5-5.0); Alkaline Phosphatase 66 U/L (40-150); Anion Gap 14 mmol/L (10-20); BUN (Urea Nitrogen) 10 mg/dL (7.0-18.7); Bilirubin, Total 0.7 mg/dL (0.2-1.2); Calc. Creatinine Clearance 0 mL/min (70-130); Calcium 9.6 mg/dL (7.8-10.44); Carbon Dioxide 24 mmol/L (22-29); Chloride 105 mmol/L (98-107); Estimated GFR-MDRD 90; Globulin 3.5 g/dL (2.4-3.5); Glucose 83 mg/dL (70-105); Lipase 7 U/L (8-78); Potassium 3.9 mmol/L (3.5-5.1); Protein, Total 7.8 g/dL (6.0-8.3); Sodium 139 mmol/L (136-145)
[2019-06-12] MEDS ORDERED: Ondansetron PF 4 MG/2 ML Vial ONE (12:52)
--- NOTE | 2019-06-12 15:18 | CT ---
CT OF THE ABDOMEN AND PELVIS WITH IV CONTRAST: INDICATION: A 29-year-old female with worsening left-sided abdominal pain that began 4 days ago. COMPARISON: CT of the abdomen and pelvis dated 01/28/2018 and pelvic ultrasound dated 06/08/2019. FINDINGS: There is stable hepatosplenomegaly with fatty infiltration. The liver measures 19.4 cm. The spleen measures 14 cm. Gallbladder is surgically absent. The pancreas and adrenal glands are normal-appearing. Both kidney s have a normal appearance. No free fluid or enlarged lymph nodes are evident. There is a normal appendix in the right lower quadrant. There has been interval enlargement of folli cular cyst within the left thyroid now measuring 2.1 cm where previously it measured 8 mm. No free f luid is evident. The bladder is unremarkable-appearing. No definite acute osseous abnormality is evident. IMPRESSION: 1. Enlarging left ovarian follicular cyst now measuring approximately 2.1 cm. It previously measure d approximately 8 mm on the prior pelvic ultrasound. There is no free fluid evident. The right ovar y is reportedly surgically absent. 2. Stable hepatosplenomegaly with fatty infiltration of the liver. 3. Stable cholecystectomy. 4. No evidence of abdominal wall or inguinal hernia. POS: [facility]
[2019-06-12] MEDS ORDERED: Ketorolac Tromethamine 30 MG/ML VIAL ONE (15:27)
[2019-06-12 15:53] LABS: Bilirubin Negative (Negative); Blood, Urine Negative (Negative); Clarity Clear (Clear); Glucose, Urine (Dipstick) Negative (Negative); Leukocyte Negative (Negative); Nitrite Negative (Negative); Protein, Urine (Dipstick) Negative (Neg-Trace); Urobilinogen 0.2 mg/dL (Less than 2)
== END 2019-06-12 16:04 | disposition home or self-care (01) ==
LOC: SCSER 11:11
DX: N83.202 Unspecified ovarian cyst, left side (principal); E03.9 Hypothyroidism, unspecified
CPT/HCPCS: 74177; 80053; 81003; 83605; 83690; 84703; 85025; 85610; 85730; 96361; 96374; 96375; J1885; J2405; Q9967

== ENCOUNTER 2020-03-04 18:02 | Emergency (ER) | payer SELFPAY ==
[2020-03-04] MEDS ORDERED: Ibuprofen 800 MG TAB ONE (18:17)
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
== END 2020-03-04 19:08 | disposition home or self-care (01) ==
LOC: ERS 18:02
DX: S29.012A Strain of muscle and tendon of back wall of thorax, initial encounter (principal); E03.9 Hypothyroidism, unspecified; V43.93XA Unspecified car occupant injured in collision with pick-up truck in traffic accident, initial encounter
CPT/HCPCS: 72125; 72128

== ENCOUNTER 2022-10-18 13:42 | Outpatient (CLI) | payer OTHER | END 2022-10-18 13:43 | disposition home or self-care (01) | LOC: BICRAD 13:42 | PROVIDERS: ATTEND Obstetrics & Gynecology | DX: M54.50 Low back pain, unspecified (principal); M47.817 Spondylosis without myelopathy or radiculopathy, lumbosacral region | CPT/HCPCS: 72100 ==

== ENCOUNTER 2024-08-02 05:46 | Emergency (ER) | payer BC, MEDICAID ==
[2024-08-02] MEDS ORDERED: Ondansetron PF 4 MG/2 ML Vial ONE (06:14)
[2024-08-02] MEDS ORDERED: Morphine 4 MG/ML VIAL ONE ×2 (06:14→07:14)
[2024-08-02 06:26] LABS: #Basophils Less than 0.03 10x3/uL (0.0-0.2); #Eosinophils Less than 0.03 10x3/uL (0.0-0.7); %Lymphocytes 49.3 % (21.0-51.0); %Monocytes 4.7 % (0.0-10.0); %Neutrophils 45.8 % (42.0-75.0); Hematocrit 37.4 % (36.0-47.0); Hemoglobin 13.5 g/dL (12.0-16.0); Mean Corpuscular HGB CONC 36.1 g/dL (32.0-36.0); Mean Corpuscular Hemoglobin 32.7 pg (27.0-31.0); Mean Corpuscular Volume 90.6 fL (78.0-98.0); Mean Platelet Volume 9.8 fL (7.4-10.4); Platelet Count 158 10x3/uL (130-400); RBC Distribution Width 11.5 % (11.5-14.5); Red Blood Cell (RBC) Count 4.13 mill/uL (4.20-5.40)
[2024-08-02 06:38] LABS: BHCG - Serum Negative (NEGATIVE); Pregs Control Background? CLEAR/WHITE (CLR/WHITE); Pregs Control Bar Appear? YES (CONTROL BAR)
[2024-08-02 06:42] LABS: ALT (SGPT) 14 U/L (8-55); AST (SGOT) 20 U/L (5-34); Albumin 3.7 g/dL (3.5-5.0); Alkaline Phosphatase 32 U/L (40-110); Anion Gap 12 mmol/L (10-20); BUN (Urea Nitrogen) 13 mg/dL (7.0-18.7); Bilirubin, Total 0.5 mg/dL (0.2-1.2); Calc. Creatinine Clearance 0 mL/min (70-130); Calcium 8.8 mg/dL (7.8-10.44); Carbon Dioxide 21 mmol/L (22-29); Chloride 108 mmol/L (98-107); Estimated GFR 104; Glucose 88 mg/dL (70-105); Lipase 18 U/L (8-78); Potassium 4.1 mmol/L (3.5-5.1); Protein, Total 6.7 g/dL (6.0-8.3); Sodium 137 mmol/L (136-145)
[2024-08-02] MEDS ORDERED: Iopamidol-370 76% 500 ML MDV (1 ML CHARGE) ONE (11:46)
== END 2024-08-02 08:50 | disposition home or self-care (01) ==
LOC: ERS 05:46
DX: M16.0 Bilateral primary osteoarthritis of hip (principal); R10.31 Right lower quadrant pain
CPT/HCPCS: 74177; 80053; 83690; 84703; 85025; 96374; 96375; 96376; J2272; J2405; Q9967